=== PATIENT | male | born 1945 | race Caucasian/White ===

== ENCOUNTER → 2017-10-28 | Outpatient (CLI) | payer OTHER ==
[~2017-10-28] MED LIST: AMLO10 PO; ASPI81CH; ATOR10 PO; Aspirin EC81 MG PO; Ativan0.5 MG PO; DOC250 PO; HYDCHL12.5 PO; LOSA50 PO; Prilosec Otc20 MG PO; Senna8.6 MG PO
== END | disposition home or self-care (01) ==
LOC: LAB EV 15:51
DX: J02.9 Acute pharyngitis, unspecified (principal)
CPT/HCPCS: 87070

== ENCOUNTER 2021-09-16 09:21 | Day surgery (SDC) | payer OTHER ==
[~2021-09-16] VITALS: Ht 182.9 cm; Wt 93.5 kg
[~2021-09-16 09:21] MED LIST changes: +ALBU90OI INH; +BREO ELLIPTA 11 EAC1 INH; +SENNA LAXATIVE8.6 MG PO
--- NOTE | 2021-09-16 10:27 | NUR ---
09/16/21 [email or web address] Carole Palacios History, Chart, Medications and Allergies reviewed before start of procedure. Patient confirms NPO status and agrees with scheduled surgery. 3-LEAD EKG REVIEWED WITH PHYSICIAN PRIOR TO START OF PROCEDURE. MONITOR INTACT WITH CONTINUOUS PULSE OXIMETRY AND INTERMITTENT BP. PATIENT DETERMINED TO BE ASA APPROPRIATE FOR PROPOFOL SEDATION PRIOR TO START OF PROCEDURE BY DR. DAVIS.
--- NOTE | 2021-09-16 11:35 | NUR ---
Discharge instructions reviewed with patient. Patient verbalizes understanding. Copy given to patient to take home.
--- NOTE | 2021-09-16 11:41 | NUR ---
Discharge instructions reviewed with patient. Patient verbalizes understanding. Copy given to patient to take home. Discharged via wheelchair to private car for ride home.
== END 2021-09-16 11:44 | disposition home or self-care (01) ==
LOC: ORSCMMR 09:21 → ORD 10:00 → ORSCMMR 11:44
PROVIDERS: Internal Medicine Gastroenterology
PROC: 0DBM8ZX Excision of Descending Colon, Via Natural or Artificial Opening Endoscopic, Diagnostic (ICD-10-PCS; principal; 2021-09-16 10:00)
PROC: 0D758ZZ Dilation of Esophagus, Via Natural or Artificial Opening Endoscopic (ICD-10-PCS; principal; 2021-09-16 10:00)
PROC: 0DB48ZX Excision of Esophagogastric Junction, Via Natural or Artificial Opening Endoscopic, Diagnostic (ICD-10-PCS; principal; 2021-09-16 10:00)
PROC: 0DB98ZX Excision of Duodenum, Via Natural or Artificial Opening Endoscopic, Diagnostic (ICD-10-PCS; principal; 2021-09-16 10:00)
PROC: 0DB78ZX Excision of Stomach, Pylorus, Via Natural or Artificial Opening Endoscopic, Diagnostic (ICD-10-PCS; principal; 2021-09-16 10:00)
DX: R13.14 Dysphagia, pharyngoesophageal phase (principal); R10.31 Right lower quadrant pain; Z85.038 Personal history of other malignant neoplasm of large intestine; Z86.010 Personal history of colon polyps; D12.4 Benign neoplasm of descending colon; K21.9 Gastro-esophageal reflux disease without esophagitis; Z80.0 Family history of malignant neoplasm of digestive organs; K44.9 Diaphragmatic hernia without obstruction or gangrene; K57.30 Diverticulosis of large intestine without perforation or abscess without bleeding; K64.8 Other hemorrhoids; I10 Essential (primary) hypertension; E78.00 Pure hypercholesterolemia, unspecified; Z79.899 Other long term (current) drug therapy; Z87.891 Personal history of nicotine dependence
CPT/HCPCS: 88305; 88342; A9270; C1726; J2704; J7120

== ENCOUNTER → 2022-08-15 | Outpatient (CLI) | payer OTHER ==
[2022-08-17 13:34] LABS: Stool Occult Bld Immuno 1 Negative (NEGATIVE)
== END | disposition home or self-care (01) ==
LOC: LAB SHORT 20:00 → LAB 20:00
PROVIDERS: Hospitalist
DX: Z12.11 Encounter for screening for malignant neoplasm of colon (principal)
CPT/HCPCS: 82274

== ENCOUNTER 2023-10-23 14:40 | Emergency (ER) | payer OTHER ==
[~2023-10-23] VITALS: Ht 177.8 cm; Wt 81.7 kg
[2023-10-23] MEDS ORDERED: Ketorolac Tromethamine 15mg Vial IM ONE (15:05)
[2023-10-23] MEDS ORDERED: Tetanus and Diphtheria Toxoid 0.5 ML INJ IM ONE (15:05)
[2023-10-23] MEDS ORDERED: Cephalexin Monohydrate 500 MG Cap PO ONE (15:05)
[2023-10-23] MEDS ORDERED: RX Prepack 6 Tabs Oxycodone 5mg UD ONE (16:30)
[2023-10-23] MEDS ORDERED: OxyCODONE HCL 5 MG TAB PO ONE (16:30)
[2023-10-23] MEDS ORDERED: Percocet 5-3251 EACH PO (16:33)
[2023-10-23] MEDS ORDERED: Keflex500 MG PO (16:33)
[2023-10-23 17:01] VITALS: BP 165/90
== END 2023-10-23 17:06 | disposition home or self-care (01) ==
LOC: ER 14:40
DX: S68.121A Partial traumatic metacarpophalangeal amputation of left index finger, initial encounter (principal); I10 Essential (primary) hypertension; E78.00 Pure hypercholesterolemia, unspecified; K59.00 Constipation, unspecified; W31.89XA Contact with other specified machinery, initial encounter; Y93.89 Activity, other specified; Z88.8 Allergy status to other drugs, medicaments and biological substances; Z79.899 Other long term (current) drug therapy
CPT/HCPCS: 12001; 73140; 90714; 96372-59; 99283-25; A9270; J1885